=== PATIENT | female | born 1990 ===

== ENCOUNTER 2017-09-23 17:58 | Emergency (ER) | payer BC ==
[2017-09-23 18:59] VITALS: TEMP 98.2; O2SAT 100; BMI 23.5
[2017-09-23] MEDS ORDERED: Morphine 4 mg/ml ISec IVP STA (18:59)
[2017-09-23] MEDS ORDERED: Sodium Chloride 0.9% 1,000 ML IV STA (18:59)
--- NOTE | 2017-09-23 18:59 | ED PDOC ---
Arrival/HPI - General Chief Complaint: Abdominal Pain Time Seen by Provider: 09/23/17 18:09 Historian: Patient - History of Present Illness Narrative History of Present Illness (Text): 09/23/17 18:58 This 27 yo female with pmh narcolepsy, lupus, presents to this ED c/o RLQ abdominal pain x 4 days. Patient stated she was seen by Dr. Lilian Torres this morning, who recommended patient to go to ED to r/o appendicitis. Patient denies fever, nausea, vomiting, urinary symptoms, sob, cp, or abnormal gait. Time/Duration: Other (see hpi) Context: Home Past Medical History - Provider Review Nursing Documentation Reviewed: Yes - Infectious Disease Hx of Infectious Diseases: None - Cardiac Hx Cardiac Disorders: Yes Hx Mitral Valve Prolapse: Yes - Pulmonary Hx Respiratory Disorders: No - Neurological Hx Neurological Disorder: Yes Other/Comment: Narcolepsy. Neuropathy - HEENT Hx HEENT Disorder: No - Renal Hx Renal Disorder: No - Endocrine/Metabolic Hx Endocrine Disorders: Yes Hx Systemic Lupus Erythematosus: Yes - Hematological/Oncological Hx Blood Disorders: No - Integumentary Hx Dermatological Disorder: No - Musculoskeletal/Rheumatological Hx Musculoskeletal Disorders: Yes - Gastrointestinal Hx Gastrointestinal Disorders: No - Genitourinary/Gynecological Hx Genitourinary Disorders: No - Psychiatric Hx Psychophysiologic Disorder: No Hx Substance Use: No Family/Social History - Physician Review Nursing Documentation Reviewed: Yes Family/Social History: Other (noncontributory) Smoking Status: Hookah Hx Alcohol Use: No Hx Substance Use: No Allergies/Home Meds Allergies/Adverse Reactions: Allergies No Known Allergies Allergy (Verified 09/23/17 18:30) Home Medications: Home Meds Medication Instructions Recorded Confirmed Acetaminophen/Oxycodone Hydr 1 tab PO QID 09/23/17 09/23/17 [Percocet 2.5/325 mg Tab] Amphetamine Salt Combination 20 mg PO BID 09/23/17 09/23/17 [Adderall] Butalbital/Aspirin/Caffeine 1 tab PO PRN PRN 09/23/17 09/23/17 [Hldefq-[id number]-Mjqku 50-325-40] Gabapentin [Neurontin] 600 mg PO TID 09/23/17 09/23/17 Hydroxychloroquine Sulfate 200 mg PO BID 09/23/17 09/23/17 [Plaquenil] Omeprazole [Omeprazole] 40 mg PO DAILY 09/23/17 09/23/17 Ondansetron [Zofran Tab] 4 mg PO DAILY 09/23/17 09/23/17 Prednisone [Sahun] 5 mg PO DAILY 09/23/17 09/23/17 Review of Systems - Review of Systems Constitutional: Normal. absent: Fatigue, Weight Change, Fevers, Night Sweats Eyes: Normal ENT: Normal Respiratory: Normal. absent: SOB Cardiovascular: Normal. absent: Chest Pain Gastrointestinal: Abdominal Pain. absent: Constipation, Diarrhea, Nausea, Vomiting Genitourinary Female: Normal. absent: Dysuria, Frequency, Hematuria Musculoskeletal: Normal. absent: Back Pain, Neck Pain, Myalgias Skin: Normal Neurological: Normal. absent: Headache, Dizziness Endocrine: Normal Hemo/Lymphatic: Normal Psychiatric: Normal Physical Exam Vital Signs Temp Pulse Resp BP Pulse Ox 09/23/17 18:37 98.2 F 105 H 16 147/90 100 Temperature: Afebrile Blood Pressure: Normal Pulse: Regular Respiratory Rate: Normal Appearance: Positive for: Well-Appearing, Non-Toxic, Comfortable Pain Distress: None Mental Status: Positive for: Alert and Oriented X 3 - Systems Exam Head: Present: Atraumatic, Normocephalic Pupils: Present: PERRL Extroacular Muscles: Present: EOMI Conjunctiva: Present: Normal Mouth: Present: Moist Mucous Membranes Neck: Present: Normal Range of Motion Respiratory/Chest: Present: Clear to Auscultation, Good Air Exchange. No: Respiratory Distress, Accessory Muscle Use Cardiovascular: Present: Regular Rate and Rhythm, Normal S1, S2. No: Murmurs Abdomen: Present: Tenderness ((+) RLQ tenderness. No guarding. No rebound), Normal Bowel Sounds. No: Distention, Peritoneal Signs, Rebound, Guarding, McBurney's Point Tender, Hernias Back: Present: Normal Inspection. No: CVA Tenderness Upper Extremity: Present: Normal Inspection, Normal ROM. No: Cyanosis, Edema Lower Extremity: Present: Normal Inspection, Normal ROM. No: Edema Neurological: Present: GCS=15, CN II-XII Intact, Speech Normal Skin: Present: Warm, Dry, Normal Color. No: Rashes Psychiatric: Present: Alert, Oriented x 3, Normal Insight, Normal Concentration Medical Decision Making ED Course and Treatment: 09/23/17 21:42 Re-evaluation. Patient feels better. Discussed results and plan with patient who expresses understanding. All questions answered and there is agreement with the plan to discharge home with instructions. Patient stable for discharge. Return if symptoms persist or worsen. Patient was recommended to decreased amount of Percocet since it can caused constipation, and addiction. Patient was recommended to Drink Prune juice, and to take Colace as instructed. Re-evaluation Time: 21:42 Reassessment Condition: Re-examined, Improved - Lab Interpretations Lab Results: 09/23/17 19:39 09/23/17 19:39 Lab Results 09/23/17 19:45: Urine Color Colorless, Urine Appearance Clear, Urine pH 7.0, Ur Specific [place] 1.010, Urine Protein Negative, Urine Glucose (UA) Negative, Urine Ketones Negative, Urine Blood Trace-intact H, Urine Nitrate Negative, Urine Bilirubin Negative, Urine Urobilinogen 0.2, Ur Leukocyte Esterase Trace H , Urine RBC 0 - 2, Urine WBC 0 - 2, Ur Epithelial Cells 0 - 2, Urine Bacteria Neg, Urine HCG, Qual Negative 09/23/17 19:39: pO2 32, VBG pH 7.33, VBG pCO2 51.0, VBG HCO3 26.9, VBG Total CO2 28.5 H, VBG O2 Sat (Calc) 63.9, VBG Base Excess 0.2, VBG Potassium 4.2, Sodium 138.0, Chloride 105.0, Glucose 90, Lactate 0.9, FiO2 21.0, Venous Blood Potassium 4.2 09/23/17 19:39: Sodium 138, Chloride 102, Potassium 4.0, Carbon Dioxide 25, Anion Gap 15, BUN 10, Creatinine 0.5 L, Est GFR ( Amer) > 60, Est GFR ( Non-Af Amer) > 60, Random Glucose 91, Calcium 9.5, Magnesium 1.9, Total Bilirubin 0.5, AST 22, ALT 21, Alkaline Phosphatase 59, Total Protein 8.0, Albumin 4.4, Globulin 3.5, Albumin/Globulin Ratio 1.3, Lipase 27 09/23/17 19:39: WBC 9.2, RBC 4.66, Hgb 13.5, Hct 40.3, MCV 86.5, MCH 29.0, MCHC 33.5, RDW 13.1, Plt Count 346, MPV 9.3, Gran % 72.4 H, Lymph % (Auto) 23.7, [place] % (Auto) 3.7, Eos % (Auto) 0.0 L, Baso % (Auto) 0.2, Gran # 6.64 H, Lymph # (Auto) 2.2, [place] # (Auto) 0.3, Eos # (Auto) 0.0, Baso # (Auto) 0.02 I have reviewed the lab results: Yes Interpretation: Abnormal lab values - RAD Interpretation Narrative RAD Interpretations (Text): 09/23/17 21:41 FINDINGS: Lung bases: Unremarkable. No mass. No consolidation. ABDOMEN: Liver: Unremarkable. No mass. Gallbladder and bile ducts: Unremarkable. No calcified stones. No ductal dilation. Pancreas: Unremarkable. No ductal dilation. Spleen: Unremarkable. No splenomegaly. Adrenals: Unremarkable. No mass. Kidneys and ureters: Unremarkable. No solid mass. No hydronephrosis. Stomach and bowel: Unremarkable. No dilated bowel loops. PELVIS: Appendix: No findings to suggest acute appendicitis. Bladder: Unremarkable. Reproductive: Unremarkable as visualized. ABDOMEN and PELVIS: Intraperitoneal space: Unremarkable. No free air. No significant fluid collection. Bones/joints: No acute fracture. No dislocation. Soft tissues: Unremarkable. Vasculature: Unremarkable. No abdominal aortic aneurysm. Lymph nodes: Unremarkable. No enlarged lymph nodes. IMPRESSION: No imaging features to suggest acute appendicitis at this time Radiology Orders: 09/23/17 19:00 ABD & PELVIS IV CONTRAST ONLY [CT] Stat - Medication Orders Current Medication Orders: Discontinued Medications Famotidine (Pepcid) 20 mg IVP STAT STA Stop: 09/23/17 19:00 Last Admin: 09/23/17 19:27 Dose: 20 mg IVP Administration Document 09/23/17 19:27 RD (Rec: 09/23/17 20:02 RD [id number]) Charges for Administration # of IVP Administrations 1 Sodium Chloride (Sodium Chloride 0.9%) 1,000 mls @ 1,000 mls/hr IV .Q1H STA Stop: 09/23/17 19:58 Last Admin: 09/23/17 19:27 Dose: 1,000 mls/hr eMAR Start Stop Document 09/23/17 19:27 RD (Rec: 09/23/17 20:01 RD [id number]) Intravenous Solution Start Date 09/23/17 Start Time 19:27 End Date 09/23/17 End time 20:27 Total Infusion Time 60 Morphine Sulfate (Morphine) 2 mg IVP STAT STA Stop: 09/23/17 19:14 Last Admin: 09/23/17 19:31 Dose: 2 mg MAR Pain Assessment Document 09/23/17 19:31 RD (Rec: 09/23/17 20:02 RD [id number]) Pain Reassessment Is this a pain reassessment? No Sleep Is patient sleeping during reassessment? No Presence of Pain Presence of Pain Yes IVP Administration Document 09/23/17 19:31 RD (Rec: 09/23/17 20:02 RD [id number]) Charges for Administration # of IVP Administrations 1 Disposition/Present on Arrival - Present on Arrival Any Indicators Present on Arrival: No History of DVT/PE: No History of Uncontrolled Diabetes: No Urinary Catheter: No History of Decub. Ulcer: No History Surgical Site Infection Following: None - Disposition Have Diagnosis and Disposition been Completed?: Yes Diagnosis: Nonspecific abdominal pain Disposition: HOME/ ROUTINE Disposition Time: 21:49 Patient Plan: Discharge Patient Problems: Current Active Problems Problem Status Onset Nonspecific abdominal pain Acute Condition: IMPROVED Discharge Instructions (ExitCare): Acute Abdomen (Belly Pain), Adult (DC) Additional Instructions: Call private doctor for follow up visit in 1-2 days. Take medication as instructed. Return to emergency if symptoms worsen. Prescriptions: Docusate Sodium [Colace] 100 mg PO BID #20 capsule Referrals: Magdalena Lozano MD [Staff Provider] - Follow up with primary [employer] [Outside] - Follow up with primary Forms: [employer] (Kiswahili), WORK NOTE
[2017-09-23] MEDS ORDERED: Morphine 2 mg/ml ISec IVP STA (19:13)
[2017-09-23 19:54] LABS: BASO # 0.02 K/mm3 (0.0-2.0); BASO % 0.2 % (0.0-3.0); GRAN # 6.64 (1.4-6.5); GRAN % 72.4 % (50.0-68.0); HEMOGLOBIN 13.5 g/dL (12.0-16.0); LYMPH # 2.2 (1.2-3.4); LYMPH % 23.7 % (22.0-35.0); MEAN CELL VOLUME 86.5 fl (80.0-105.0); MEAN CORPUSCULAR HGB CONC 33.5 g/dl (31.0-37.0); MEAN PLATELET VOLUME 9.3 fl (7.0-11.0); MONO # 0.3 (0.1-0.6); MONO % 3.7 % (1.0-6.0); RBC 4.66 10^6/uL (3.5-6.1); RED CELL DISTRIBUTION WIDTH 13.1 % (11.5-14.5); VENOUS BLOOD GAS BASE EXCESS 0.2 mmol/L (0.0-2.0); VENOUS BLOOD GAS PO2 32 mm/Hg (30-55); VENOUS BLOOD PH 7.33 (7.32-7.43); WHITE BLOOD COUNT 9.2 10^3/ul (4.5-11.0)
[2017-09-23 19:56] LABS: URINE BILIRUBIN NEGATIVE (NEGATIVE); URINE BLOOD TRACE-INTACT (NEGATIVE); URINE GLUCOSE (UA) NEGATIVE (NEGATIVE); URINE LEUKOCYTE ESTERASE TRACE Leu/uL (NEGATIVE); URINE PROTEIN NEGATIVE mg/dL (<30 mg/dL); URINE UROBILINOGEN 0.2 E.U./dL (<1 E.U./dL)
[2017-09-23 19:57] LABS: URINE APPEARANCE CLEAR (CLEAR); URINE COLOR COLORLESS (YELLOW)
[2017-09-23 19:59] LABS: HCG,QUALITATIVE URINE NEGATIVE (NEGATIVE)
[2017-09-23 20:01] LABS: URINE BACTERIA NEG (NEG); URINE EPITHELIAL CELLS 0 - 2 /hpf (0-5); URINE RBC 0 - 2 /hpf (0-2); URINE WBC 0 - 2 /hpf (0-6)
[2017-09-23 20:03] LABS: ALB/GLOB RATIO 1.3 (1.1-1.8); ALBUMIN 4.4 g/dL (3.0-4.8); ALT/SGPT 21 U/L (7-56); AST/SGOT 22 U/L (14-36); BLOOD UREA NITROGEN 10 mg/dL (7-21); CALCIUM 9.5 mg/dL (8.4-10.5); GFR AFRICAN-AMERICAN > 60; GFR NON-AFRICAN AMERICAN > 60; LIPASE 27 U/L (23-300)
[2017-09-23] MEDS ORDERED: Iohexol 350 MG/100 ML VIAL ONE (20:20)
[2017-09-23 22:06] VITALS: BP 132/73; PULSE 90; RESP 17
--- NOTE | 2017-09-24 09:19 | CT ---
Date of service: 09/23/2017 PROCEDURE: CT Abdomen and Pelvis with contrast HISTORY: Right lower quadrant abdominal pain. COMPARISON: None. TECHNIQUE: Contrast dose: 100 cc Omnipaque 350 Radiation dose: Total exam DLP = 256.60 mGy-cm. This CT exam was performed using one or more of the following dose reduction techniques: Automated exposure control, adjustment of the mA and/or kV according to patient size, and/or use of iterative reconstruction technique. FINDINGS: LOWER THORAX: Unremarkable. LIVER: Unremarkable. No gross lesion or ductal dilatation. GALLBLADDER AND BILE DUCTS: Unremarkable. PANCREAS: Unremarkable. No gross lesion or ductal dilatation. SPLEEN: Unremarkable. ADRENALS: Unremarkable. No mass. KIDNEYS AND URETERS: Unremarkable. No hydronephrosis. No solid mass. VASCULATURE: Unremarkable. No aortic aneurysm. BOWEL: Constipation without fecal impaction or obstruction. APPENDIX: No abnormalities to suggest acute appendicitis. No right lower quadrant inflammatory processes identified. PERITONEUM: Unremarkable. No free fluid. No free air. LYMPH NODES: Unremarkable. No enlarged lymph nodes. BLADDER: Unremarkable. REPRODUCTIVE: Unremarkable. BONES: No acute fracture. OTHER FINDINGS: None. IMPRESSION: No significant or acute findings to account for/ related to the clinical presentation. Additional benign and/or incidental findings described above. Concordant results (preliminary interpretation) provided by [employer]. Procedure Completed: 20:51 Preliminary ([employer]) Report: Dictated and Authenticated: 21:43. Final Interpretation: 09:17. September 24, 2017.
== END 2017-09-23 22:05 | disposition home or self-care (01) ==
LOC: ED 17:58 → MERGE 17:58 → ED 22:05
DX: R10.9 Unspecified abdominal pain (principal); M32.9 Systemic lupus erythematosus, unspecified; G47.419 Narcolepsy without cataplexy
CPT/HCPCS: 74177; 80053; 81001; 81025; 82803; 83690; 83735; 84703; 85025; 87086; 96361; 96374; 96375; 99282; J2270; J7030; Q9967